=== PATIENT | male | born 1985 | race Caucasian/White ===

== ENCOUNTER 2020-05-15 02:08 | Emergency (ER) | payer MEDICAID ==
[~2020-05-15] VITALS: Ht 175.3 cm; Wt 72.6 kg
[2020-05-15] MEDS ORDERED: VALPROATE SODIUM 500 MG/5 ML VIAL IV ONE ×2 (02:15→02:22)
[2020-05-15] MEDS ORDERED: IV NORMAL SALINE 1000 ML BAG IV ONE (02:15)
[2020-05-15] MEDS ORDERED: ONDANSETRON 4 MG/2 ML VIAL IV ONE (02:15)
[2020-05-15] MEDS ORDERED: ONDANSETRON 4 MG/2 ML VIAL ONE (02:22)
[2020-05-15 02:42] LABS: BASOPHILS # (AUTO) 0.1 K/uL (0.0-8.0); BASOPHILS % (AUTO) 0.7 % (0.0-2.0); EOSINOPHILS # (AUTO) 0.1 K/uL (0.0-0.7); EOSINOPHILS % (AUTO) 1.1 % (0.0-7.0); HEMATOCRIT 40.6 % (36.7-47.1); HEMOGLOBIN 13.7 g/dL (12.5-16.3); LYMPHOCYTES # (AUTO) 1.2 K/uL (20.0-40.0); LYMPHOCYTES % (AUTO) 10.8 % (20.5-51.5); MEAN CORPUSCULAR HEMOGLOBIN 32.1 uug (23.8-33.4); MEAN CORPUSCULAR HGB CONC 34 g/dL (32.5-36.3); MONOCYTES # (AUTO) 0.9 K/uL (2.0-10.0); MONOCYTES % (AUTO) 8.3 % (0.0-11.0); NEUTROPHILS # (AUTO) 8.7 K/uL (1.8-8.9); NEUTROPHILS % (AUTO) 79.1 % (38.5-71.5); PLATELET COUNT (AUTO) 197 K/uL (152-348); RED BLOOD CELL COUNT(AUTO) 4.28 MIL/uL (4.06-5.63); WHITE BLOOD COUNT (AUTO) 11.1 K/uL (3.6-10.2)
[2020-05-15 02:52] LABS: CREATININE 0.9 mg/dL (0.6-1.3); POTASSIUM 3.9 mmol/L (3.5-5.1)
[2020-05-15] MEDS ORDERED: CALCIUM GLUCONATE IV 2 GM in IV NORMAL SALINE 100 ML IV ONE (03:00)
[2020-05-15 03:05] LABS: ETHANOL < 3 MG/DL (0-0)
[2020-05-15] MEDS ORDERED: CALCIUM GLUCONATE 1 GM/10 ML VIAL IV ONE (03:15)
[2020-05-15 03:18] LABS: BILIRUBIN,DIRECT 0.1 mg/dL (0.0-0.2); BILIRUBIN,TOTAL 0.2 mg/dL (0.2-1.0); TOTAL PROTEIN, SERUM 6.8 g/dL (6.4-8.2)
[2020-05-15 04:46] LABS: *BLOOD, URINE NEGATIVE (NEGATIVE); *CLARITY,URINE CLEAR (CLEAR); *COLOR,URINE YELLOW (YELLOW); UGLUCOSE NEGATIVE (NEGATIVE)
[2020-05-15 04:47] LABS: *BILIRUBIN,URIN NEGATIVE (NEGATIVE); *KETONES,URINE NEGATIVE (NEGATIVE); *UROBILINOGEN,URINE 0.2 E.U./dl (NORMAL); LEUKOCYTE ESTERASE ,URINE NEGATIVE (NEGATIVE); NITRITE, URINE NEGATIVE (NEGATIVE)
[2020-05-15 04:51] LABS: *AMPHETAMINE, URINE POSITIVE (NEGATIVE); *CANNABINOID, URINE POSITIVE (NEGATIVE); *COCCAINE, URINE NEGATIVE (NEGATIVE); *OPIATE, URINE NEGATIVE (NEGATIVE); *PHENCYCLIDINE SCREEN,URINE NEGATIVE (NEGATIVE)
[2020-05-15] MEDS ORDERED: DIVA250T4 PO (06:05)
--- NOTE | 2020-05-15 06:05 | NUR ---
Paged Epic panel, Waiting for [facility] to call back.
[2020-05-15] MEDS ORDERED: ACETAMINOPHEN 325 MG TABLET PO PRN (06:15)
[2020-05-15] MEDS ORDERED: LORAZEPAM 2 MG/1 ML VIAL IV PRN (06:15)
[2020-05-15] MEDS ORDERED: MAGNESIUM HYDROXIDE 30 ML LIQUID UDC PO PRN (06:15)
[2020-05-15] MEDS ORDERED: HYDROCODONE/APAP 5-325MG TABLET PO PRN (06:15)
[2020-05-15] MEDS ORDERED: ONDANSETRON 4 MG/2 ML VIAL IV PRN (06:15)
--- NOTE | 2020-05-15 06:25 | NUR ---
Pt. admitted to tele , under care of Parag Altman NP. Belongs List completed.
[2020-05-15 06:30] LABS: MAGNESIUM 1.4 mg/dL (1.8-2.4); PHOSPHOROUS 4.1 mg/dL (2.5-4.9); POTASSIUM 3.9 mmol/L (3.5-5.1)
--- NOTE | 2020-05-15 07:07 | NUR ---
Received Pt in bed resting. Pt states feeling better and no longer nauseous.
[2020-05-15] MEDS ORDERED: MAGNESIUM SULFATE/D5W 100 ML ONE (07:26)
[2020-05-15] MEDS ORDERED: MAGNESIUM SULFATE/D5W 100 ML IV SCH (07:30)
--- NOTE | 2020-05-15 07:50 | NUR ---
Hospital breakfast tray provided, pt ate 100% of food. No c/o N/V and dizziness. Pt walked w/ steady gait to bathroom.
--- NOTE | 2020-05-15 08:30 | NUR ---
IV removed. Catheter intact and site benign. Pressure and 4x4 gauze applied to site. No bleeding noted.
--- NOTE | 2020-05-15 08:36 | NUR ---
Patient does not wish to proceed with medical care recommended by Dr. Alfaro). Patient given information related to possible complications, up to and including , which could occur as a result of leaving the hospital at this time. Patient verbalizes understanding of risks involved due to leaving against medical advice. Patient has signed AMA form.
--- NOTE | 2020-05-15 08:36 | NUR ---
Patient given written and verbal discharge instructions. Patient verbalizes understanding of instructions. Patient is ambulatory with steady gait. Refuses offer of [facility] placement. Patient given list of available shelters in surrounding area.
[2020-05-15 08:42] VITALS: BP 120/65
[2020-05-15] MEDS ORDERED: NICOTINE 14 MG/24HR PATCH TD SCH (09:00)
== END 2020-05-15 08:47 | disposition left against medical advice (07) ==
LOC: ER 02:17
DX: E83.51 Hypocalcemia (principal); E86.0 Dehydration; R55 Syncope and collapse; G40.909 Epilepsy, unspecified, not intractable, without status epilepticus; Z91.14 Patient's other noncompliance with medication regimen; F15.10 Other stimulant abuse, uncomplicated; Z20.828 Contact with and (suspected) exposure to other viral communicable diseases; R94.31 Abnormal electrocardiogram [ECG] [EKG]
CPT/HCPCS: 36415; 71045; 80048 ×2; 80076; 80307; 80320; 81001; 83735; 84100; 84484; 85025; 87426; 93005; 96361; 96365; 96367; 96375; 99285; J0610; J2405; J3475; J3490; 70030-TC; A4663; G0480; J7030

== ENCOUNTER 2022-07-25 19:05 | Emergency (ER) | payer MEDICAID ==
[~2022-07-25] VITALS: Ht 175.3 cm; Wt 72.6 kg
[~2022-07-25 19:05] MED LIST: DIVA250T4 PO
== END 2022-07-25 22:46 | disposition left against medical advice (07) ==
LOC: ER 19:06
DX: R52 Pain, unspecified (principal); F17.210 Nicotine dependence, cigarettes, uncomplicated; G40.909 Epilepsy, unspecified, not intractable, without status epilepticus; Z79.899 Other long term (current) drug therapy
CPT/HCPCS: A4663